=== PATIENT | male | born 1965 | race Caucasian/White ===

== ENCOUNTER 2018-07-29 03:00 | Outpatient (CLI) | payer OTHER, SELFPAY ==
[2018-07-29 11:43] LABS: ALT 27 U/L (12-78); AST 17 U/L (15-37); Alkaline Phosphatase 80 U/L (46-116); Anion Gap 7.9 mmol/L (3-11); BUN 19 mg/dL (7-18); Bilirubin, Total 0.5 mg/dL (0.2-1.0); CO2 29.1 mmol/L (21.0-32.0); CREATININE 1.16 mg/dL (0.70-1.30); Calcium 9.8 mg/dL (8.5-10.1); Chloride 100 mmol/L (98-107); Cholesterol 169 mg/dL (50-200); Glucose 88 mg/dL (70-100); HDL Cholesterol 29 mg/dL (40-60); LDL CHOLESTEROL 115 mg/dL (<100); Potassium 5.3 mmol/L (3.5-5.1); Sodium 137 mmol/L (136-145); Total Protein 7.7 g/dL (6.4-8.2); Triglyceride 104 mg/dL (30-150)
== END 2018-07-29 03:20 ==
PROVIDERS: PCP Family Medicine; Visit Provider Family Medicine
DX: Z00.00 Encounter for general adult medical examination without abnormal findings (principal)
CPT/HCPCS: 36415; 80053; 80061; 83721

== ENCOUNTER 2018-10-11 12:31 | Outpatient (REF) | payer OTHER, SELFPAY ==
--- NOTE | 2018-10-11 11:15 | UVULA_PTH ---
PATIENT: Joel Verduzco LOC: [facility] U#:[id number] AGE/SX: 53/M ROOM: RE10/11/[address]: Shoaib Crain DO : 1965 BED: DIS: 10/11/2018 SPEC #: [id number] RECD: 10/12/18 12:46 STATUS: TOM REQ #: [id number] KILLIAN: 10/11/18 11:[address]: Shoaib Crain DEPT: Surgical Specimen RECD BY: Anh Liu ENTERED: 10/12/18 12:46 SP TYPE: UVULA OTHR DR: Bora Rowland MD Tissues: 1 - UVULA Procedures: GROSS AND MICRO LEVEL 3 Comments: [id number]
== END 2018-10-11 12:51 ==
LOC: LBN 12:31
PROVIDERS: PCP Family Medicine; Visit Provider Otolaryngology Otolaryngology/Facial Plastic Surgery
DX: D10.39 Benign neoplasm of other parts of mouth (principal)
CPT/HCPCS: 88304

== ENCOUNTER 2021-10-05 22:32 | Emergency (ER) | payer BC, SELFPAY ==
[2021-10-05 22:36] VITALS: BP 148/89; PULSE 68; RESP 16; TEMP 36.3; O2SAT 99
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
--- NOTE | 2021-10-06 01:11 | NUR.NOTE ---
Addendum entered by Samira Al 10/06/21 01:12: which ever service can see patient soonest. Original Note: [facility]errals [facility]ed to [facility] to follow up mg for foreign body right hand.Nursing Note:
[2021-10-06] MEDS: Cephalexin 500 MG CAP PO (01:22)
[2021-10-06] MEDS: Lidocaine 1% Pres-Free 5 ML VIAL IJ (01:23)
== END 2021-10-06 01:24 | disposition home or self-care (01) ==
PROVIDERS: Emergency Provider Emergency Medicine
DX: S61.441A Puncture wound with foreign body of right hand, initial encounter (principal); S01.81XA Laceration without foreign body of other part of head, initial encounter; S11.93XA Puncture wound without foreign body of unspecified part of neck, initial encounter; Z77.22 Contact with and (suspected) exposure to environmental tobacco smoke (acute) (chronic); W39.XXXA Discharge of firework, initial encounter; Y93.89 Activity, other specified
CPT/HCPCS: 10120; 99283; 73130; 99284

== ENCOUNTER 2021-10-08 15:16 | Outpatient (CLI) | payer BC, SELFPAY ==
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
== END 2021-10-08 15:17 | disposition home or self-care (01) ==
LOC: DIORS 15:16
PROVIDERS: Visit Provider Student in an Organized Health Care Education/Training Program
DX: S60.551A Superficial foreign body of right hand, initial encounter (principal)
CPT/HCPCS: 73120